=== PATIENT | female | born 1965 | race Two or more races ===

== ENCOUNTER 2018-11-24 10:26 | Inpatient (IN) | payer OTHER ==
[~2018-11-24] VITALS: Ht 162.6 cm; Wt 102.4 kg
[2018-11-24] MEDS ORDERED: methylPREDNISolone SOD SUCC 125 MG/2 ML VL IV ONE (11:00)
[2018-11-24] MEDS ORDERED: IPRATROPIUM BROM 0.5 MG/2.5ML INH SOL HHN ONE (11:00)
[2018-11-24] MEDS ORDERED: ALBUTEROL SULF 2.5 MG/0.5ML(0.5%) NEB SOLN HHN ONE (11:00)
[2018-11-24 11:31] LABS: Basophils # (auto) 0 uL; Basophils % (auto) 0.7 % (0.0-2.0); Eosinophils # (auto) 0.5 uL; Eosinophils % (auto) 7.5 % (0.0-7.0); Hematocrit 44.7 % (36.0-46.0); Hemoglobin 15.1 g/dL (12.2-16.2); Lymphocytes # (auto) 1.6 uL; Lymphocytes % (auto) 23.3 % (10.0-50.0); Mean Corpuscular Hemoglobin 30.3 pg (28.0-32.0); Mean Corpuscular Hgb Conc. 33.9 g/dL (32.0-36.0); Mean Corpuscular Volume 89.6 fL (80.0-100.0); Monocytes # (auto) 0.4 uL; Monocytes % (auto) 5.4 % (0.0-12.0); Neutrophils # (auto) 4.3 uL; Neutrophils % (auto) 63.1 % (37.0-80.0); Nucleated Red Blood Cells % 0.3 %; Platelet Count (auto) 235 10^3/uL (140-450); Red Blood Cells 4.99 10^6/uL (4.0-5.20); Red Cell Distribution Width 14.1 % (11.8-14.3); White Blood Cell 6.8 10^3/uL (4.4-10.8)
[2018-11-24 11:48] LABS: Albumin 3.5 g/dL (3.4-5.0); Anion Gap 5 (5-15); Blood Urea Nitrogen 13 mg/dL (7-18); Calcium 8.3 mg/dL (8.5-10.1); Carbon Dioxide 28 mmol/L (21-32); Chloride 106 mmol/L (98-107); Glucose 98 mg/dL (74-106); Potassium 3.8 mmol/L (3.5-5.1); Sodium 139 mmol/L (136-145)
[2018-11-24 11:54] LABS: Alanine Aminotransferase 32 U/L (13-56); Alkaline Phosphatase 93 U/L (45-117); Aspartate Aminotransferase 20 U/L (15-37); BUN/Creatinine Ratio 20.6; Bilirubin, Total 0.2 mg/dL (0.2-1.0); GFR African American 126 mL/min; GFR Non-African American 104 mL/min; Total Protein 7.1 g/dL (6.4-8.2)
[2018-11-24] MEDS ORDERED: PANTOPRAZOLE 40 MG TAB PO ONE (13:45)
[2018-11-24] MEDS ORDERED: LISINOPRIL 10 MG TAB PO ONE (13:45)
[2018-11-24] MEDS ORDERED: LEVOFLOXACIN 500MG 100 ML IV ONE (13:45)
[2018-11-24] MEDS ORDERED: HCTZ 25 MG TAB PO ONE (13:45)
[2018-11-24] MEDS ORDERED: ENALAPRILAT 1.25 MG/ML-1ML VIAL IV PRN (13:45)
[2018-11-24] MEDS: methylPREDNISolone SOD SUCC 40 MG/ML VL IV SCH ×2 (14:00→21:23)
[2018-11-24 14:50] VITALS: BP 153/110
--- NOTE | 2018-11-24 14:50 | NUR ---
Med/Surg admit from [facility] admitted to Md/Surg unit. Patient oriented to Alma Ewing, primary RN, unit, room, bed, and unit policies regarding patient care and visiting hours. Patient is A&O x4, on 2 LPM/NC, o2 saturation 91%. No signs of SOB/Distress noted. Safety precautions in place including, bed et to lowest position/locked, bedside rails up x2, call light within reach. Instructed patient to call for assistance. Will continue to monitor Q 1hr and PRN.
[2018-11-24] MEDS ORDERED: ALBUTEROL SULF 2.5 MG/0.5ML(0.5%) NEB SOLN NEB SCH (15:00)
--- NOTE | 2018-11-24 15:00 | NUR ---
HHN NOT GIVEN AT THIS TIME, PT MEDS HAVE NOT BEEN VERIFIED. UNABLE TO ADMINISTER MED NEB AT 1400. PT IN NO RESPIRATORY DISTRESS NOTED. WILL CONTINUE TO MONITOR PT.
[2018-11-24 17:00] VITALS: BP 159/104
[2018-11-24] MEDS ORDERED: ALBU0.084 IN (17:14)
[2018-11-24 17:55] LABS: Urine Bacteria NONE SEEN /hpf (None Seen); Urine Blood Negative /uL (Negative); Urine Specific Gravity 1.005 (1.001-1.035); Urine WBC <1 /hpf (0 - 5)
[2018-11-24] MEDS: ALBUTEROL SULF 2.5 MG/0.5ML(0.5%) NEB SOLN NEB SCH ×2 (19:17→22:33)
[2018-11-24] MEDS: IPRATROPIUM BROM 0.5 MG/2.5ML INH SOL NEB SCH ×2 (19:17→22:33)
[2018-11-24] MEDS: BUDESONIDE (INHALATION) 0.5 MG/2 ML NEB NEB SCH (19:18)
--- NOTE | 2018-11-24 19:53 | NUR ---
ENDORSED CARE TO LACIE MARTINEZ.
--- NOTE | 2018-11-24 20:10 | NUR ---
RECEIVED PATIENT IN BED, AAOX4. NO DISTRESS NOTED. AFEBRILE. WITH MILD SOB NOTED ON EXERTION. POCS DISCUSSED WITH PATIENT AND SHOWED UNDERSTANDING. BED KEPT ON LOWEST POSITION. SIDE RAILS UP. CALL LIGHT/TABLE IN REACH. KEPT COMFORTABLE.
[2018-11-24 21:20] VITALS: BP 159/104
[2018-11-24 22:00] VITALS: BP 150/101
[2018-11-24 22:37] VITALS: BP 154/98
[2018-11-24] MEDS ORDERED: ALBUTEROL SULF 2.5 MG/0.5ML(0.5%) NEB SOLN NEB PRN (23:00)
[2018-11-25 05:00] VITALS: BP 147/88
[2018-11-25] MEDS: methylPREDNISolone SOD SUCC 40 MG/ML VL IV SCH ×2 (05:26→21:49)
--- NOTE | 2018-11-25 06:04 | NUR ---
ON BED, AWAKE. STABLE. NO DISTRESS NOTED. FOR MORE CARE AND MANAGEMENT.
[2018-11-25] MEDS: IPRATROPIUM BROM 0.5 MG/2.5ML INH SOL NEB SCH ×4 (07:44→18:49)
[2018-11-25] MEDS: ALBUTEROL SULF 2.5 MG/0.5ML(0.5%) NEB SOLN NEB SCH ×4 (07:45→18:49)
--- NOTE | 2018-11-25 07:45 | NUR ---
OPENING NOTE ASSUMED CARE OF PT. PT IS SITTING ON BED, HOB HIGH-FOWLERS. A&O X4. ON 2 LPM/NC, O2 SATURATION 98%. NO SIGNS OF SOB/DISTRESS. SAFETY PRECAUTIONS IN PLACE INCLUDING, BED SET TO LOWEST POSITION/LOCKED. BEDSIDE RAILS UP X2. CALL LIGHT WITHIN REACH. INSTRUCTED PT TO CALL FOR ASSISTANCE. DISCUSSED POC WITH PT. PT VERBALIZED UNDERSTANDING. WILL CONTINUE TO MONITOR Q 1HR AND PRN.
[2018-11-25 09:00] VITALS: BP 137/94
[2018-11-25] MEDS: LEVOFLOXACIN 500MG 100 ML IV SCH (10:26)
[2018-11-25] MEDS: PANTOPRAZOLE 40 MG TAB PO SCH (10:27)
[2018-11-25] MEDS: HCTZ 25 MG TAB PO SCH (10:27)
[2018-11-25] MEDS: LISINOPRIL 10 MG TAB PO SCH (10:27)
[2018-11-25] MEDS: BUDESONIDE (INHALATION) 0.5 MG/2 ML NEB NEB SCH ×2 (10:42→18:49)
[2018-11-25 13:00] VITALS: BP 140/93
[2018-11-25 17:00] VITALS: BP 124/85
--- NOTE | 2018-11-25 19:18 | NUR ---
ENDORSED CARE TO LACIE JOHNSON.
--- NOTE | 2018-11-25 19:25 | NUR ---
OPENING NOTE RECEIVED REPORT FROM DAY RN. PT IS RESTING HOB HIGH-FOWLERS. A&O X4. ON 2 LPM/NC, NO SIGNS OF SOB/DISTRESS. SAFETY PRECAUTIONS IN PLACE INCLUDING, BED SET TO LOWEST POSITION/LOCKED. BEDSIDE RAILS UP X2. CALL LIGHT WITHIN REACH. INSTRUCTED PT TO CALL FOR ASSISTANCE. DISCUSSED POC WITH PT. PT VERBALIZED UNDERSTANDING. WILL CONTINUE TO MONITOR Q 1HR AND PRN.
[2018-11-25 21:29] VITALS: BP 114/79
[2018-11-26 05:33] VITALS: BP 132/93
[2018-11-26] MEDS: ALBUTEROL SULF 2.5 MG/0.5ML(0.5%) NEB SOLN NEB SCH ×3 (05:59→14:38)
[2018-11-26] MEDS: IPRATROPIUM BROM 0.5 MG/2.5ML INH SOL NEB SCH ×3 (05:59→14:38)
--- NOTE | 2018-11-26 07:25 | NUR ---
OPENING NOTE ASSUMED CARE OF PT. PT IS SITTING ON BED, HOB HIGH-FOWLERS. A&O X4. ON 2 LPM/NC, O2 SATURATION 93%. NO SIGNS OF SOB/DISTRESS. SAFETY PRECAUTIONS IN PLACE INCLUDING, BED SET TO LOWEST POSITION/LOCKED. BEDSIDE RAILS UP X2. CALL LIGHT WITHIN REACH. INSTRUCTED PT TO CALL FOR ASSISTANCE. DISCUSSED POC WITH PT. PT VERBALIZED UNDERSTANDING. WILL CONTINUE TO MONITOR Q 1HR AND PRN.
[2018-11-26 09:00] VITALS: BP 143/92
[2018-11-26] MEDS: LEVOFLOXACIN 500MG 100 ML IV SCH (10:00)
[2018-11-26] MEDS: HCTZ 25 MG TAB PO SCH (10:01)
[2018-11-26] MEDS: methylPREDNISolone SOD SUCC 40 MG/ML VL IV SCH (10:01)
[2018-11-26] MEDS: LISINOPRIL 10 MG TAB PO SCH (10:02)
[2018-11-26] MEDS: PANTOPRAZOLE 40 MG TAB PO SCH (10:02)
[2018-11-26] MEDS: BUDESONIDE (INHALATION) 0.5 MG/2 ML NEB NEB SCH (10:24)
[2018-11-26 11:53] VITALS: BP 143/92
[2018-11-26 13:00] VITALS: BP 144/87
--- NOTE | 2018-11-26 13:40 | NUR ---
Discharge instructions given as ordered. Encourage to follow up with Dr. Luevano on 12/01/18 at 10:00 AM. [id number] [place] [id number]. Ext [phone]. Patient was provide with diabetic information. All questions and concerns addressed. Patient verbalized understanding. No home medications held in Pharmacy and no vaccines given. IV removed with catheter intact, pressure dressing applied.
--- NOTE | 2018-11-26 14:38 | NUR ---
Respiratory note: PT REFUSED [place] TX. PT STATED SHE WAS GOING HOME AND DIDN'T WANT A TX. NO SOB OR DISTRESS NOTED. MEDICATION RETURNED TO [facility]
--- NOTE | 2018-11-26 15:18 | NUR ---
Patient ambulated to vehicle with all personal belongings, accompanied by staff and family member. No distress noted at time of departure.
== END 2018-11-26 15:18 | disposition home or self-care (01) | DRG 193 ==
LOC: ER 10:36 → OVERFLOW 13:42 → CENTRAL 14:50
PROVIDERS: ADMIT Internal Medicine; ATTEND Internal Medicine
DX: J18.9 Pneumonia, unspecified organism (principal); J96.00 Acute respiratory failure, unspecified whether with hypoxia or hypercapnia; J45.902 Unspecified asthma with status asthmaticus; E66.9 Obesity, unspecified; I10 Essential (primary) hypertension; Z79.899 Other long term (current) drug therapy; Z91.19 Patient's noncompliance with other medical treatment and regimen; Z68.38 Body mass index [BMI] 38.0-38.9, adult; Z98.51 Tubal ligation status
CPT/HCPCS: 36415; 71045; 80053; 81001; 83880; 84484; 85025; 87070; 87077; 87186; 87205; 87804; 93005; 94640; 94761; 96365; 96375; G0378; J1956

== ENCOUNTER → 2019-01-12 | Outpatient (CLI) | payer OTHER ==
[~2019-01-12] MED LIST: ALBU0.084 IN
[2019-01-12 10:03] LABS: Cholesterol 190 mg/dL (< 200); HDL Cholesterol 66 mg/dL (40-59); LDL Cholesterol 108 mg/dL (< 100); Triglycerides 92 mg/dL (< 150)
== END | disposition home or self-care (01) ==
LOC: LAB 08:52
PROVIDERS: ATTEND Internal Medicine
DX: E11.9 Type 2 diabetes mellitus without complications (principal); I10 Essential (primary) hypertension; E78.5 Hyperlipidemia, unspecified
CPT/HCPCS: 36415; 80061; 82043; 82270; 83036

== ENCOUNTER 2019-01-26 13:13 | Emergency (ER) | payer OTHER, MEDICAID ==
[~2019-01-26] VITALS: Ht 162.6 cm; Wt 120.2 kg
[2019-01-26] MEDS ORDERED: SODIUM CHLORIDE 0.9% 1,000 ML IV ONE (13:26)
[2019-01-26] MEDS ORDERED: AZITHROMYCIN 500MG/ 250ML 250 ML IV ONE (13:30)
[2019-01-26] MEDS ORDERED: FUROSEMIDE 40 MG/4 ML VIAL IV ONE (13:30)
[2019-01-26] MEDS ORDERED: cefTRIAXone 1GM/50ML D5W 50 ML IV ONE (13:30)
[2019-01-26 14:19] LABS: Basophils # (auto) 0.1 uL; Basophils % (auto) 0.9 % (0.0-2.0); Eosinophils # (auto) 0.4 uL; Eosinophils % (auto) 6.8 % (0.0-7.0); Hematocrit 45.7 % (36.0-46.0); Lymphocytes # (auto) 1.5 uL; Lymphocytes % (auto) 24.2 % (10.0-50.0); Mean Corpuscular Hemoglobin 29.5 pg (28.0-32.0); Mean Corpuscular Hgb Conc. 32.9 g/dL (32.0-36.0); Mean Corpuscular Volume 89.6 fL (80.0-100.0); Monocytes # (auto) 0.4 uL; Monocytes % (auto) 5.9 % (0.0-12.0); Neutrophils # (auto) 3.8 uL; Neutrophils % (auto) 62.2 % (37.0-80.0); Nucleated Red Blood Cells % 0.1 %; Platelet Count (auto) 237 10^3/uL (140-450); Red Cell Distribution Width 14.2 % (11.8-14.3); White Blood Cell 6.1 10^3/uL (4.4-10.8)
[2019-01-26 14:33] LABS: INR 0.97 (0.9-1.15); Partial Thromboplastin Time 27.4 sec (23.78-33.04); Prothrombin Time 10.4 sec (9.27-12.13)
[2019-01-26 14:35] LABS: Albumin 3.7 g/dL (3.4-5.0); Anion Gap 7 (5-15); Blood Urea Nitrogen 19 mg/dL (7-18); Calcium 8.5 mg/dL (8.5-10.1); Carbon Dioxide 28 mmol/L (21-32); Chloride 103 mmol/L (98-107); Glucose 153 mg/dL (74-106); Potassium 3.6 mmol/L (3.5-5.1); Sodium 138 mmol/L (136-145)
[2019-01-26 14:42] LABS: Alanine Aminotransferase 31 U/L (13-56); Alkaline Phosphatase 74 U/L (45-117); Aspartate Aminotransferase 13 U/L (15-37); BUN/Creatinine Ratio 21.3; Bilirubin, Total 0.4 mg/dL (0.2-1.0); GFR African American 85 mL/min; GFR Non-African American 70 mL/min; Total Protein 7.6 g/dL (6.4-8.2)
[2019-01-26] MEDS ORDERED: IPRATROPIUM BROM 0.5 MG/2.5ML INH SOL NEB ONE (15:30)
[2019-01-26] MEDS ORDERED: methylPREDNISolone SOD SUCC 125 MG/2 ML VL IV ONE (15:30)
[2019-01-26] MEDS ORDERED: ALBUTEROL SULF 2.5 MG/0.5ML(0.5%) NEB SOLN NEB ONE (15:30)
[2019-01-26] MEDS ORDERED: NITROGLYCERIN 0.4 MG SL TAB SL PRN (16:15)
[2019-01-26] MEDS ORDERED: ACETAMINOPHEN 500 MG TAB PO PRN (16:15)
[2019-01-26] MEDS ORDERED: MORPHINE SULF INJ 2 MG/ML SYRINGE 1ML IV PRN ×2 (16:15)
[2019-01-26] MEDS ORDERED: DEXTROSE (50%) 50ML SYRG IV PRN (16:15)
[2019-01-26] MEDS ORDERED: HYDROcodone-ACET 5/325MG TAB PO PRN (16:15)
[2019-01-26] MEDS ORDERED: ONDANSETRON HCL 4 MG/2 ML VIAL IV PRN (16:15)
[2019-01-26] MEDS ORDERED: InsuLIN REG 1unit/0.01ml Soln (100units/ml) SC SCH (17:00)
[2019-01-26] MEDS ORDERED: ACCU-CHEK COMFORT CURVE STRIP VI SCH (17:00)
[2019-01-26] MEDS ORDERED: ALBUTEROL SULF 2.5 MG/0.5ML(0.5%) NEB SOLN NEB SCH (18:00)
[2019-01-26] MEDS ORDERED: IPRATROPIUM BROM 0.5 MG/2.5ML INH SOL NEB SCH (18:00)
[2019-01-26 18:06] VITALS: BP 135/93
[2019-01-26] MEDS ORDERED: methylPREDNISolone SOD SUCC 125 MG/2 ML VL IV SCH (22:00)
[2019-01-27] MEDS ORDERED: cefTRIAXone 1GM/50ML D5W 50 ML IV SCH (10:00)
[2019-01-27] MEDS ORDERED: AZITHROMYCIN 500MG/ 250ML 250 ML IV SCH (10:00)
== END 2019-01-26 19:31 | disposition left against medical advice (07) ==
LOC: EDBD 13:13 → ER 13:27 → UNDOADMIN 16:21 → OVERFLOW 16:21
DX: I11.0 Hypertensive heart disease with heart failure (principal); I50.9 Heart failure, unspecified; J18.9 Pneumonia, unspecified organism; E11.9 Type 2 diabetes mellitus without complications; J45.909 Unspecified asthma, uncomplicated; Z98.51 Tubal ligation status
CPT/HCPCS: 36415; 71045; 80053; 82962; 83605; 83880; 84484; 85025; 85610; 85730; 87040; 94640; 96365; 96366; 96368; 96375; 99284; J0456; J0696; J1940; J2930; J7030; J7611; J7644